=== PATIENT | female | born 1970 | race African-American/Black ===

== ENCOUNTER 2017-11-08 18:58 | Emergency (ER) | payer BC ==
[2017-11-08] MEDS ORDERED: IBUPROFEN 600 MG TAB PO STA (20:44)
[2017-11-08] MEDS ORDERED: PENICILLIN V POTASSIUM 250 MG TAB PO STA (20:44)
[2017-11-08] MEDS ORDERED: ACETAMINOPHEN TAB 500 MG TAB PO STA (20:46)
--- NOTE | 2017-11-08 21:02 | ED ---
General Adult HPI - General Chief complaint: Dental/Oral Stated complaint: Dental pain Time Seen by Provider: 11/08/17 19:59 Source: patient, RN notes reviewed Mode of arrival: ambulatory Limitations: no limitations - History of Present Illness Initial comments: 47-year-old female presents to the emergency department for a chief complaint of tooth pain. Patient states this has been going on for about a week. Patient has had multiple problems with this tooth as it is her wisdom tooth. She states about a week ago she felt a crack when she was eating and thats when the pain started. She states it is difficult to open her mouth to eat. Patient denies fevers or chills. Patient states cold causes pain on the tooth. Patient denies a stiffness or tenderness in the neck. Patient denies severe headache. Patient denies any visual changes. Patient denies chest pain, shortness of breath, abdominal pain, nausea or vomiting. Patient has had dental pain before and was seen at the [facility]. She was also seen at [facility] and would like to return to them. - Related Data Home Medications Medication Instructions Recorded Confirmed Ibuprofen [Motrin Ib] 800 mg PO Q8H PRN 11/08/17 11/08/17 Previous Rx's Medication Instructions Recorded Ibuprofen [Motrin] 600 mg PO Q8HR PRN #20 tab 11/08/17 Penicillin V Potassium [Pen Vee K] 500 mg PO Q6H 10 Days tablet 11/08/17 Allergies Allergy/AdvReac Type Severity Reaction Status Date / Time No Known Allergies Allergy Verified 11/08/17 19:46 Review of Systems ROS Statement: Those systems with pertinent positive or pertinent negative responses have been documented in the HPI. ROS Other: All systems not noted in ROS Statement are negative. Past Medical History Past Medical History: No Reported History Additional Past Medical History / Comment(s): HX OF HEPATITIS B (20 YRS AGO), HX OF GESTATIONAL DIABETES, MENSTRUAL PERIODS HEAVY WITH ANEMIA AND BLOOD TRANSFUSION ?DECEMBER 2014. History of Any Multi-Drug Resistant Organisms: None Reported Past Surgical History: Cholecystectomy, Orthopedic Surgery, Tubal Ligation Additional Past Surgical History / Comment(s): KNEE ARTHROSCOPY. Past Anesthesia/Blood Transfusion Reactions: No Reported Reaction Additional Past Anesthesia/Blood Transfusion Reaction / Comment(s): BLOOD TRANSFUSION ?DECEMBER 2014- DENIES REACTION Past Psychological History: No Psychological Hx Reported Smoking Status: Current every day smoker Past Alcohol Use History: Rare Past Drug Use History: None Reported - Past Family History Mother Family Medical History: No Reported History General Exam Limitations: no limitations Head exam: Present: atraumatic, normocephalic, normal inspection Eye exam: Present: normal appearance, PERRL, EOMI. Absent: scleral icterus, conjunctival injection, periorbital swelling ENT exam: Present: mucous membranes moist, TM's normal bilaterally, other ( Patient has difficulty opening her mouth and pain/tenderness in the left TMJ joint. Patient has pain on the left side of the mouth when biting down on tongue depressor. Patient has point tenderness on tooth 17.) Neck exam: Present: normal inspection, full ROM. Absent: tenderness, meningismus, lymphadenopathy Respiratory exam: Present: normal lung sounds bilaterally. Absent: respiratory distress, wheezes, rales, rhonchi, stridor Cardiovascular Exam: Present: regular rate, normal rhythm, normal heart sounds. Absent: systolic murmur, diastolic murmur, rubs, gallop, clicks Course Vital Signs 11/08/17 19:32 Temperature 98.4 F Pulse Rate 64 Respiratory 16 Rate Blood Pressure 189/95 O2 Sat by Pulse 100 Oximetry Medical Decision Making - Medical Decision Making 47-year-old female presents to the emergency department for chief complaint of tooth pain. Patient denies any recent fevers or chills. Patient states the pain is aching it difficult for her to open her jaw. Patient denies radiating of the pain but states she has tenderness at the TMJ joint on the left side of her mandible. No pain or stiffness in the neck. No severe headaches. Vitals are as follows:Temp 98.4, pulse 64, respirations 16, blood pressure 189/95, pulse ox 100. Patient's blood pressure is likely high because of pain. Patient will follow up with her primary care provider for blood pressure management one to 2 days. Patient requests an x-ray of the TMJ joint on the left side because of the pain there and the inability to open her mouth. I discussed that this is likely normal but she still wanted to receive it. X- ray showed no acute abnormalities of the left TMJ but did demonstrate this directed changes of the left lower molar. This is where the patient is having her pain. Patient was given Tylenol in the emergency department because she had already had ibuprofen a couple hours ago. Patient feels much better after receiving this Tylenol. She was also given a dose of penicillin while in the emergency department she will fill the script for penicillin as soon as possible. Patient states she knows where the community dental clinic is. She is either going to go there or family dentistry and does not need a dental referral. Disposition Clinical Impression: Tooth pain Disposition: HOME SELF-CARE Condition: Good Instructions: Dental Abscess (ED), Toothache (ED) Additional Instructions: Please take penicillin and ibuprofen as directed. Please return to the emergency department if you have worsening pain or increased signs of infection. Please follow up with primary care provider in one to 2 days for blood pressure management. Please follow up with either community dental clinic or another dentist. Prescriptions: Ibuprofen [Motrin] 600 mg PO Q8HR PRN #20 tab PRN Reason: Pain Penicillin V Potassium [Pen Vee K] 500 mg PO Q6H 10 Days tablet Referrals: Anthony Pruitt MD [Primary Care Provider] - 1-2 days Time of Disposition: 21:07
--- NOTE | 2017-11-08 21:23 | XR ---
EXAMINATION TYPE: XR mandible complete DATE OF EXAM: 11/08/2017 COMPARISON: NONE HISTORY: Left-sided pain TECHNIQUE: 5 views FINDINGS: The mandibular ring is intact. I see no bony destructive process. Temporomandibular joints are anatomic. I see no fracture. IMPRESSION: Negative mandible exam. There is significant destructive change involving the most acquisition professional ior left lower molar.
[2017-11-08 21:48] VITALS: BP 183/92; PULSE 82; RESP 20; TEMP 97.8
== END 2017-11-08 21:48 | disposition home or self-care (01) ==
LOC: EC 18:58
DX: K08.89 Other specified disorders of teeth and supporting structures (principal); F17.200 Nicotine dependence, unspecified, uncomplicated
CPT/HCPCS: 70110; 99283

== ENCOUNTER 2017-11-20 16:19 | Emergency (ER) | payer BC ==
[2017-11-20 16:56] VITALS: TEMP 98.3
--- NOTE | 2017-11-20 17:28 | ED ---
General Adult HPI - General Chief complaint: Dental/Oral Stated complaint: DENTAL ABSCESS Time Seen by Provider: 11/20/17 16:58 Source: patient, RN notes reviewed Mode of arrival: ambulatory Limitations: no limitations - History of Present Illness Initial comments: Patient's a 47-year-old female presenting to the emergency room today with a chief complaint of dental pain. Patient says she's proceeded dentist but that her point and was canceled. She states been taking the antibiotic. She believes there is a was tooth is pushing on the right lower side of her jaw. She was seen here in emergency room recently for this having x-ray obtained. Patient states she was using pain medication but she is currently out. She was on ibuprofen and Tylenol have no improvement of symptoms. She states she has not taken anything for the pain today. Patient's blood pressure elevated at triage. Was elevated at her previous visit as well. She states she's not on any medication for this. She believes it's only due to the pain. Patient denies any other complaints or symptoms. She states her blood pressure usually is otherwise normal. Patient denies any drainage or discharge. Patient denies any recent fever, chills, shortness of breath, chest pain, back pain, abdominal pain, nausea or vomiting, visual changes, or any other complaints. - Related Data Home Medications Medication Instructions Recorded Confirmed Ibuprofen [Motrin Ib] 800 mg PO Q8H PRN 11/08/17 11/08/17 Previous Rx's Medication Instructions Recorded Ibuprofen [Motrin] 600 mg PO Q8HR PRN #20 tab 11/08/17 Penicillin V Potassium [Pen Vee K] 500 mg PO Q6H 10 Days tablet 11/08/17 Acetaminophen-Codeine 300-30mg 1 each PO Q6H PRN #12 tablet 11/20/17 [Tylenol #3] Ibuprofen [Motrin] 800 mg PO Q6HR #30 tab 11/20/17 Allergies Allergy/AdvReac Type Severity Reaction Status Date / Time No Known Allergies Allergy Verified 11/20/17 16:53 Review of Systems ROS Statement: Those systems with pertinent positive or pertinent negative responses have been documented in the HPI. ROS Other: All systems not noted in ROS Statement are negative. Past Medical History Past Medical History: No Reported History Additional Past Medical History / Comment(s): HX OF HEPATITIS B (20 YRS AGO), HX OF GESTATIONAL DIABETES, MENSTRUAL PERIODS HEAVY WITH ANEMIA AND BLOOD TRANSFUSION ?DECEMBER 2014. History of Any Multi-Drug Resistant Organisms: None Reported Past Surgical History: Cholecystectomy, Orthopedic Surgery, Tubal Ligation Additional Past Surgical History / Comment(s): KNEE ARTHROSCOPY. Past Anesthesia/Blood Transfusion Reactions: No Reported Reaction Additional Past Anesthesia/Blood Transfusion Reaction / Comment(s): BLOOD TRANSFUSION ?DECEMBER 2014- DENIES REACTION Past Psychological History: No Psychological Hx Reported Smoking Status: Former smoker Past Alcohol Use History: Rare Past Drug Use History: None Reported - Past Family History Mother Family Medical History: No Reported History General Exam - General Exam Comments Initial Comments: General: The patient is awake and alert, in no distress, and does not appear acutely ill. Eye: Pupils are equal, round and reactive to light, extra-ocular movements are intact. No nystagmus. There is normal conjunctiva bilaterally. No signs of icterus. Ears, nose, mouth and throat: There are moist mucous membranes and no oral lesions. Patient has poor dental hygienist does have multiple missing teeth and dental fractures. She is tender greatest in the gumline of tooth #19, 18 Neck: The neck is supple, there is no tenderness or JVD. Cardiovascular: There is a regular rate and rhythm. No murmur, rub or gallop is appreciated. Respiratory: Lungs are clear to auscultation, respirations are non-labored, breath sounds are equal. No wheezes, stridor, rales, or rhonchi. Musculoskeletal: Normal ROM, no tenderness. Strength 5/5. Sensation intact. Pulses equal bilaterally 2+. Neurological: A&O x 3. CN II-XII intact, There are no obvious motor or sensory deficits. Coordination appears grossly intact. Speech is normal. Skin: Skin is warm and dry and no rashes or lesions are noted. Psychiatric: Cooperative, appropriate mood & affect, normal judgment. Limitations: no limitations Course Vital Signs 11/20/17 11/20/17 11/20/17 16:53 17:16 17:29 Temperature 98.3 F Pulse Rate 65 58 L Respiratory 18 20 Rate Blood Pressure 197/113 189/111 149/94 O2 Sat by Pulse 99 Oximetry Medical Decision Making - Medical Decision Making [facility] report was reviewed showing no prescriptions for this patient. She will be given a short prescription of Tylenol with codeine along with ibuprofen advised continue her antibiotics until she follows up with the dentist. Disposition Clinical Impression: Pain, dental Disposition: HOME SELF-CARE Condition: Fair Instructions: Toothache (ED) Additional Instructions: Please follow-up with dentist and use antibiotic and pain medication as discussed. [facility] [address] [address] [phone]) (existing clients only) For new clients: [phone] [facility] Pay $50 for x-rays and the rest discovered [phone] Prescriptions: Acetaminophen-Codeine 300-30mg [Tylenol #3] 1 each PO Q6H PRN #12 tablet PRN Reason: Pain Ibuprofen [Motrin] 800 mg PO Q6HR #30 tab Referrals: Anthony Pruitt MD [Primary Care Provider] - 1-2 days Time of Disposition: 17:36
[2017-11-20 17:29] VITALS: BP 149/94; PULSE 58; RESP 20
== END 2017-11-20 17:48 | disposition home or self-care (01) ==
LOC: EC 16:19
DX: K08.89 Other specified disorders of teeth and supporting structures (principal); Z87.891 Personal history of nicotine dependence
CPT/HCPCS: 99283

== ENCOUNTER → 2021-09-01 | Outpatient (CLI) | payer BC ==
--- NOTE | 2021-09-02 04:52 | MR ---
EXAMINATION TYPE: MR knee LT wo con DATE OF EXAM: 09/01/2021 COMPARISON: None HISTORY: Knee pain FINDINGS: The anterior and posterior cruciate ligaments are intact. There is mild knee joint effusion. There is large popliteal cyst that measures 6 x 3 cm. There is vertical complex tear through the posterior horn of the medial meniscus. There is some degen erative thinning anterior horn of the medial meniscus. Lateral meniscus appears intact. There is hype rtrophic spurring of the femoral and tibial condyles. The collateral ligaments appear intact. No frac ture line seen. The patella is intact. IMPRESSION: Hypertrophic osteoarthritis more noticeable in the medial joint space. Complex tear posterior horn me dial meniscus. No evidence of ligamentous tear. Knee joint effusion and large popliteal cyst.
== END | disposition home or self-care (01) ==
LOC: RADMRIMAIN 20:53
PROVIDERS: ATTEND Orthopaedic Surgery
DX: M17.12 Unilateral primary osteoarthritis, left knee (principal); M23.222 Derangement of posterior horn of medial meniscus due to old tear or injury, left knee; M25.462 Effusion, left knee; M71.22 Synovial cyst of popliteal space [Baker], left knee

== ENCOUNTER 2021-10-14 11:51 | Day surgery (SDC) | payer BC ==
[2021-10-13 08:22] VITALS: BMI 41.1
--- NOTE | 2021-10-13 20:44 | HP ---
HISTORY AND PHYSICAL DATE OF SURGERY: 10/14/2021 Loyda Pak is a 51-year-old patient seen with progressive left knee pain. We discussed options for treatment. She elected to proceed with arthroscopy. Consent was obtained. PAST MEDICAL HISTORY: Hypertension. PAST SURGICAL HISTORY: Cholecystectomy, hysterectomy. DAILY MEDICATIONS: Norvasc. ALLERGIES: NONE REPORTED. SOCIAL HISTORY: She denies current tobacco use. PHYSICAL EVALUATION OF THE LEFT KNEE: Range of motion is zero to 120. Mild effusion. Tenderness, medial joint line. Positive medial Nathalia's. Ligaments stable. Hip rotation without pain. Distal neurovascular exam intact. Left knee radiographs revealed moderate osteoarthritic changes. MRI left knee revealed a complex medial meniscal tear. IMPRESSION: 1. Internal derangement of left knee with medial meniscal tear. 2. Hypertension. PLAN: Left knee arthroscopy with partial meniscectomy and debridement. MMODL / IJN: [id number] /
[~2021-10-14 11:51] MED LIST: DEXAMETHASONE SOD PHOSPHATE 4 MG/ML 1 ML VIAL IV ONE; LACTATED RINGERS 1,000 ML IV SCH; LIDOCAINE 1% (10MG/ML) FOR IV START INTRADERMA PRN; MIDAZOLAM 2 MG/2 ML VIAL IV PRN; ONDANSETRON 4 MG/2 ML VIAL IVP ONE
[2021-10-14] MEDS ORDERED: MIDAZOLAM 2 MG/2 ML VIAL IVP ONE (12:29)
[2021-10-14] MEDS ORDERED: MIDAZOLAM 2 MG/2 ML VIAL ONE (13:26)
[2021-10-14] MEDS ORDERED: KETOROLAC 15 MG/ML 1 ML VIAL ONE (13:26)
[2021-10-14] MEDS ORDERED: PROPOFOL 10 MG/ML 20 ML VIAL IV ONE (13:26)
[2021-10-14] MEDS ORDERED: fentaNYL (PF) 50 MCG/ML 2 ML AMP ONE (13:26)
[2021-10-14] MEDS ORDERED: SUCCINYLCHOLINE CHLORIDE 100 MG/5 ML SYR IV ONE (13:26)
[2021-10-14] MEDS ORDERED: BUPIVACAINE (PF) 0.25% 30 ML VIAL SQ ONE ×2 (13:48→14:01)
--- NOTE | 2021-10-14 14:17 | P.OP ---
Date of Procedure: 10/14/21 Preoperative Diagnosis: Internal derangement left knee Postoperative Diagnosis: 1. Tear medial and lateral meniscus left knee 2. Grade 3/4 chondromalacia medial femoral condyle left knee 3. Reactive synovitis medial, lateral and suprapatellar compartments left Procedure(s) Performed: 1. Arthroscopic microfracture medial femoral condyle left knee 2. Arthroscopic partial medial and lateral meniscectomy left knee 3. Arthroscopic partial synovectomy medial, lateral and suprapatellar compartments left knee Anesthesia: LAVELLEA, local Surgeon: Jey Bryant Estimated Blood Loss (ml): 11 Pathology: none sent Condition: stable Disposition: PACU Indications for Procedure: 51-year-old patient seen with progressive left knee pain. After treatment options were discussed, she elected to proceed with arthroscopy. Operative Findings: see description of procedure Description of Procedure: Patient was taken to the operative suite. Patient underwent a general anesthetic by the department of anesthesia. Patient was given preoperative antibiotics. The left lower extremity was placed in a well-padded arthroscopic leg mccann. The left leg was prepped and draped in the normal sterile orthopedic fashion. A lateral parapatellar and suprapatellar incision was made. Trochars were inserted. Arthroscopy was initiated. Suprapatellar pouch revealed diffuse thick reactive synovitis. The patellofemoral joint appeared to articulate congruently. There was grade 2/3 chondromalacia of the patellofemoral joint with no osteochondral tears present. The scope was guided into the medial gutter. No loose bodies or plica were identified. The scope was then guided into the medial compartment. A medial parapatellar incision was made. Trocar inserted followed by probe. There was a complex tear involving the posterior horn medial meniscus there were grade 3/4 chondromalacia changes of the medial femoral condyle with some large osteochondral flap tears present. There was some thick reactive synovitis anteriorly. I performed a partial medial meniscectomy getting down to stable meniscal tissue. I performed a partial synovectomy decompressing the thick reactive synovitis. I performed a chondroplasty of the medial femoral condyle getting down to stable osteochondral tissue. The residual meniscus was stable. There was good decompression of the synovitis. The residual osteochondral surface was stable but there was an area of exposed bone measuring about 1.5 cm along the posterior aspect of the weightbearing surface medial femoral condyle. I performed a microfracture that area penetrating the bone with resultant bleeding of microfracture site. Scope and probe were then guided into the intercondylar notch. Cruciates were identified, probed and found to be stable. The scope and probe were then guided into lateral compartment. There was a small radial tear mid body lateral meniscus. There were some grade 1 chondromalacia changes of the lateral compartment without tear. There was some thick reactive synovitis anteriorly. I performed a partial lateral meniscectomy. I performed a partial synovectomy. The residual meniscus was stable. There was good decompression of the synovitis. The scope was in guided back into the suprapatellar compartment. I introduced a motorized shaver and debrided out some piecemeal fragments of meniscus I encountered. I performed a partial synovectomy. The shaver was removed. There was good decompression of synovitis. I now took one more look on the entire knee, no residual debris. Instruments were now removed from the joint. The joint was infiltrated with .25% Marcaine. Steri-Strips were applied to the portal sites. Sterile dressings were applied. The patient was placed into a ELVIE hose. No tourniquet was utilized. The patient was awakened, transferred to a bed and taken to recovery stable satisfactory condition.
[2021-10-14 14:20] VITALS: TEMP 97.1
[2021-10-14] MEDS: HYDROmorphone 0.5 MG/0.5 ML SYRINGE IVP PRN ×2 (14:23→14:31)
[2021-10-14 15:09] VITALS: RESP 16
[2021-10-14] MEDS ORDERED: HYDROcodone/APAP 5-325MG 1 EACH TAB ONE ×2 (15:19→15:21)
[2021-10-14] MEDS ORDERED: HYDROcodone/APAP 5-325MG 1 EACH TAB PO ONE (15:20)
[2021-10-14] MEDS ORDERED: ONDANSETRON 4 MG/2 ML VIAL ONE (15:37)
[2021-10-14] MEDS ORDERED: ONDANSETRON 4 MG/2 ML VIAL IVP ONE (15:44)
[2021-10-14 15:56] VITALS: BP 124/86; PULSE 56
== END 2021-10-14 17:00 | disposition home or self-care (01) ==
LOC: OR 11:51
PROVIDERS: ATTEND Orthopaedic Surgery
DX: M23.204 Derangement of unspecified medial meniscus due to old tear or injury, left knee (principal); M23.201 Derangement of unspecified lateral meniscus due to old tear or injury, left knee; M94.262 Chondromalacia, left knee; M65.862 Other synovitis and tenosynovitis, left lower leg; I10 Essential (primary) hypertension; E66.01 Morbid (severe) obesity due to excess calories; Z68.41 Body mass index [BMI] 40.0-44.9, adult; Z90.710 Acquired absence of both cervix and uterus; Z90.49 Acquired absence of other specified parts of digestive tract; Z98.891 History of uterine scar from previous surgery; Z79.899 Other long term (current) drug therapy
CPT/HCPCS: 29880; 29879; J2250; J1100; J0690; J2405; J3010; J1885; J0330; J2704; J1170

== ENCOUNTER → 2022-01-12 | Outpatient (CLI) | payer OTHER ==
--- NOTE | 2022-01-12 15:04 | CT ---
EXAMINATION TYPE: CT brain wo con DATE OF EXAM: 01/12/2022 COMPARISON: None INDICATION: fall, posterior head injury DLP: 1012.7 mGycm, Automated exposure control for dose reduction was used. CONTRAST: None CT of the brain is performed utilizing 3 mm thick sections through the posterior fossa and 3 mm thick sections through the remaining calvarium. Study is performed within 24 hours of arrival to the hosp ital. No abnormal hyperdensity is present to suggest an acute intracranial hemorrhage. No mass lesion is evident. No acute infarcts are evident. Ventricles and sulci are appropriate for the patient age. Paranasal sinuses and mastoid air cells within the [id number] are clear. No fractures are evident IMPRESSIONS: 1. No acute intracranial process. Follow-up MRI can be performed as clinically indicated.
--- NOTE | 2022-01-12 15:06 | CT ---
EXAMINATION TYPE: CT facial bones wo con DATE OF EXAM: 01/12/2022 COMPARISON: None HISTORY: fall hitting posterior aspect of head CT DLP: 514.1 mGycm Automated exposure control for dose reduction was used. Contrast: None Technique: Facial bones are examined in the axial plane at 2 mm thick sections. Reconstructed images in the coronal plane are reviewed. FINDINGS: There is a retention cyst within the inferior left maxillary sinus. Minimal mucosal thickening is wit hin the inferior right maxillary sinus. Remaining paranasal sinuses visualized are clear. 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 Right septal deviation is noted Temporomandibular junctions are normal. Mandible and maxilla are intact. Maxillary spine is intact. Z ygomatic arches are normal. Greater wings of the sphenoid are unremarkable IMPRESSION: 1. NO ACUTE OSSEOUS ABNORMALITIES FACIAL BONES.
== END | disposition home or self-care (01) ==
LOC: RADCTMAIN 14:34
PROVIDERS: ATTEND Emergency Medicine
DX: S09.90XA Unspecified injury of head, initial encounter (principal); W19.XXXA Unspecified fall, initial encounter
CPT/HCPCS: 70450; 70486

== ENCOUNTER → 2022-01-13 | Outpatient (CLI) | payer OTHER ==
--- NOTE | 2022-01-13 11:00 | CT ---
EXAMINATION TYPE: CT cervical spine wo con DATE OF EXAM: 01/13/2022 COMPARISON: None HISTORY: 51-year-old female S13.4XXD SPRAIN OF LIGAMENTS OF CERVICAL SPINE, Neck pain TECHNIQUE: Contiguous axial scanning of the cervical spine without IV contrast. Coronal and sagittal reconstructions performed. CT DLP: 1225 mGycm Automated exposure control for dose reduction was used. FINDINGS: Mild hypertrophy of the adenoid tonsils. Bilateral palatine tonsillar hypertrophy. Bulky, heterogeneo us thyroid gland. No craniocervical junction abnormality, predental space widening, or prevertebral soft tissue swellin g. Mild degenerative change at C1 dens articulation. Moderate degenerative disc disease C5-C6 with endplate sclerosis and endplate irregularity. Mild dege nerative disc disease C4-C5 and C6-C7. Small disc osteophyte complexes are present at these 3 levels. Limited assessment of the spinal canal from C5-C6 and below due to artifact from the patient's should ers. No large focal disc herniation along the more superior levels. Uncovertebral joint arthropathy lower cervical spine. Facet arthropathy to result in right in the upp er thoracic spine. No acute fracture or malalignment of the cervical spine though there is reversal of the normal cervic al lordosis. Mild to moderate left foraminal stenosis at C5-C6 and mild on the right at C7-T1. IMPRESSION: 1. NO ACUTE FRACTURE OR MALALIGNMENT OF THE CERVICAL SPINE. 2. [id number] SPONDYLOTIC CHANGES, GREATEST AT C5-C6. 3. PROMINENT SOFT TISSUE DENSITY IN THE POSTERIOR NASOPHARYNX. CONSIDER DIRECT INSPECTION. 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 4. BULKY HETEROGENEOUS THYROID GLAND. DEDICATED THYROID ULTRASOUND COULD FURTHER EVALUATE.
--- NOTE | 2022-01-13 11:09 | XR ---
EXAMINATION TYPE: XR knee complete bilateral DATE OF EXAM: 01/13/2022 COMPARISON: NONE HISTORY: 51-year-old female M25.569, Pain unspecified knee after fall yesterday. TECHNIQUE: 3 views each side FINDINGS: Moderate degenerative spurring right greater than left medial compartments. Additional degenerative s purring in the left lateral and bilateral patellofemoral compartments. Vacuum phenomenon at the right medial compartment likely relating to distraction at the knee. No sizable joint effusion on either side. Extensor mechanisms are intact. No acute fracture, subluxation, dislocation seen. IMPRESSION: 1. Moderate degenerative spurring in the right greater than left medial compartments. Additional dege nerative spurring left lateral compartment and bilateral patellofemoral compartments. 2. Some vacuum phenomenon within the right medial compartment likely due to distraction at the knee. 3. No significant joint effusion or acute osseous abnormality seen.
--- NOTE | 2022-01-13 12:57 | XR ---
EXAMINATION TYPE: XR lumbar spine 2 or 3V DATE OF EXAM: 01/13/2022 CLINICAL HISTORY: Fall injury yesterday with pain TECHNIQUE: Frontal and lateral images of the lumbar spine are obtained. COMPARISON: None FINDINGS: There are 5 lumbar type vertebral bodies identified. Bilateral pars defect L5 level with s light grade 1 anterolisthesis L5 on S1 measured 6 to 7 mm long posterior vertebral body margin. Mild disc space narrowing L5-S1 level. Mild to moderate disc space narrowing with vacuum disc phenomenon a nd moderate anterior spurring at T12-L1 level. Vertebral body heights are maintained overlying soft t issue is unremarkable. No acute displaced fracture. IMPRESSION: As above.
== END | disposition home or self-care (01) ==
LOC: RADCTMAIN 10:16
PROVIDERS: ATTEND Emergency Medicine
DX: M47.812 Spondylosis without myelopathy or radiculopathy, cervical region (principal); M25.761 Osteophyte, right knee; M25.762 Osteophyte, left knee; M51.27 Other intervertebral disc displacement, lumbosacral region
CPT/HCPCS: 72100; 72125

== ENCOUNTER → 2022-01-17 | Outpatient (CLI) | payer OTHER ==
--- NOTE | 2022-01-17 11:29 | CT ---
EXAMINATION TYPE: CT brain wo con DATE OF EXAM: 01/17/2022 COMPARISON: CT dated 01/12/2022 HISTORY: worsening posterior headache CT DLP: 1162 mGycm Automated exposure control for dose reduction was used. TECHNIQUE: CT scan of the brain is performed without IV contrast administration. FINDINGS: Cavum septum pellucidum and vergae. Stable scattered small pleural-based calcifications without signi ficant mass effect. No acute intracranial hemorrhage. No gross acute cortical infarct. No midline kobe ft, herniation or ventriculomegaly. Unremarkable camacho-white matter differentiation, basal cisterns, sella and CP angles. No gross space-o ccupying lesion, vasogenic edema or mass effect. Unremarkable orbits. Enlarged nasopharyngeal soft tissue, please correlate clinically. Mucosal thicke caty of the maxillary sinuses. Clear mastoid air cells. Unremarkable calvarial bones. IMPRESSION: No acute intracranial abnormality or gross space-occupying lesion by this nonenhanced CT scan. Incide ntal findings as described above. Further MRI assessment can be considered if clinically required.
== END | disposition home or self-care (01) ==
LOC: RADCTMAIN 10:54
PROVIDERS: ATTEND Emergency Medicine
DX: R51.9 Headache, unspecified (principal)
CPT/HCPCS: 70450

== ENCOUNTER → 2022-01-21 | Outpatient (CLI) | payer OTHER ==
--- NOTE | 2022-01-22 01:46 | MR ---
EXAMINATION TYPE: MR brain wo con DATE OF EXAM: 01/21/2022 COMPARISON: None HISTORY: Fell backwards and slammed back of head at work, headaches Multiplanar multiecho imaging of the brain with no contrast. Ventricles have normal size. There is no mass effect or midline shift. No evidence of intracranial he morrhage. No evidence of cerebral edema. Diffusion images show no sign of an acute infarct. The brain stem is intact. Cerebellum is intact. There is mucous retention cyst left maxillary sinus. The camacho a nd white matter structures show fairly normal signal pattern. No evidence of cerebral edema. Corpus callosum appears normal. Sella turcica is normal. No evidence of orbital mass. No evidence of posterior fossa mass. The internal auditory canals appear normal. IMPRESSION: Negative MR scan of the brain.
== END | disposition home or self-care (01) ==
LOC: RADMRIMAIN 19:55
PROVIDERS: ATTEND Emergency Medicine
DX: R51.9 Headache, unspecified (principal)
CPT/HCPCS: 70551

== ENCOUNTER 2022-10-28 08:19 | Day surgery (SDC) | payer BC ==
[~2022-10-28 08:19] MED LIST changes: +ACETAMINOPHEN TAB 500 MG TAB PO PRN; +DEXAMETHASONE SOD PHOSPHATE 10 MG/ML 1 ML VIAL IV PRN; +DOCUSATE 100 MG CAP PO PRN; +FAMOTIDINE 20 MG/2 ML VIAL IV PRN; +FAMOTIDINE 20 MG/2 ML VIAL IVP PRN; +HYDROmorphone 0.5 MG/0.5 ML SYRINGE IVP PRN; +KETOROLAC 15 MG/ML 1 ML VIAL IVP PRN; +ONDANSETRON 4 MG/2 ML VIAL IVP PRN; +ROPIVACAINE/EPI/CLONIDINE/KET 50 ML SYRINGE MISCELLANE PRN; +TRANEXAMIC ACID IN NACL,ISO-OS 1,000 MG in SALINE 1 100ML.BAG IV PRN; +TRANEXAMIC ACID IN NACL,ISO-OS 1,000 MG in SALINE 1 100ML.BAG IVPB PRN; +fentaNYL (PF) 50 MCG/ML 2 ML AMP IVP PRN; +oxyCODONE ER 10 MG TAB.ER.12H PO PRN
[2022-10-28] MEDS ORDERED: HYDROmorphone 0.5 MG/0.5 ML SYRINGE IVP PRN ×2 (08:36→13:12)
[2022-10-28] MEDS ORDERED: FAMOTIDINE 20 MG/2 ML VIAL IV PRN (08:36)
[2022-10-28] MEDS ORDERED: DEXAMETHASONE SOD PHOSPHATE 4 MG/ML 1 ML VIAL IV ONE (08:36)
[2022-10-28] MEDS ORDERED: PROPOFOL 10 MG/ML 20 ML VIAL IV ONE (10:22)
[2022-10-28] MEDS ORDERED: LABETALOL 5 MG/ML VIAL MDV ONE (10:22)
[2022-10-28] MEDS ORDERED: ROCURONIUM 10 MG/ML (5 ML VIAL) IV ONE (10:22)
[2022-10-28] MEDS ORDERED: GLYCOPYRROLATE 0.2 MG/ML 2 ML VIAL ONE (10:22)
[2022-10-28] MEDS ORDERED: ROPIVACAINE 5 MG/ML 30 ML VIAL ONE (10:22)
[2022-10-28] MEDS ORDERED: fentaNYL (PF) 50 MCG/ML 2 ML AMP ONE (10:22)
[2022-10-28] MEDS ORDERED: LIDOCAINE 4% LTA KIT (4 ML) TOPICAL ONE (10:22)
[2022-10-28] MEDS ORDERED: ePHEDrine 50 MG/ML 1 ML VIAL ONE (10:22)
[2022-10-28] MEDS ORDERED: MIDAZOLAM 2 MG/2 ML VIAL ONE (10:22)
[2022-10-28] MEDS ORDERED: NEOSTIGMINE 1 MG/ML 10 ML VIAL ONE (10:22)
[2022-10-28] MEDS ORDERED: TRANEXAMIC ACID IN NACL,ISO-OS 1,000 MG/100 ML BAG ONE (10:22)
[2022-10-28] MEDS ORDERED: HYDROmorphone (PF) 1 MG/ML ONE (10:22)
[2022-10-28] MEDS ORDERED: SUCCINYLCHOLINE CHLORIDE 200 MG/10 ML VIAL IV ONE (10:22)
[2022-10-28] MEDS ORDERED: LIDOCAINE 2% INJ 20 MG/ML (2 ML VIAL) ONE (10:22)
[2022-10-28] MEDS: ROPIVACAINE/EPI/CLONIDINE/KET 50 ML SYRINGE MISCELLANE PRN ×2 (11:08→11:52)
[2022-10-28] MEDS ORDERED: LACTATED RINGERS 1,000 ML IV ONE ×2 (11:31)
[2022-10-28] MEDS ORDERED: NALOXONE 0.4 MG/ML 1 ML VIAL IV PRN (13:12)
[2022-10-28] MEDS ORDERED: HYDROmorphone 1 MG/ML 1 ML SYRINGE IVP PRN (13:12)
[2022-10-28] MEDS ORDERED: HYDROcodone/APAP 5-325MG 1 EACH TAB PO PRN (13:12)
[2022-10-28] MEDS ORDERED: ONDANSETRON 4 MG/2 ML VIAL IVP PRN (13:12)
--- NOTE | 2022-10-28 13:13 | P.OP ---
Date of Procedure: 10/28/22 Preoperative Diagnosis: 1. Severe left knee osteoarthritis 2. BMI 45.1 Postoperative Diagnosis: Same Procedure(s) Performed: Left total knee replacement Implants: 1. Nitin Triathlon CR Femur Size #3 2. Keene Triathlon Arrington Tibial Base Size #3 3. Keene Triathlon CS poly Size #9-mm 4. Keene Triathlon all poly patella, Size #29 Anesthesia: LAVELLEA Surgeon: Fran Cartwright Truck Technician #1: Jefferson Joe Estimated Blood Loss (ml): 150 IV fluids (ml): 1,000 Pathology: none sent Condition: stable Disposition: PACU Indications for Procedure: I met with the patient preoperatively in the office setting and discussed treatment of their symptomatic knee arthritis. They failed a long course of nonsurgical treatment and elected to proceed with an elective total knee replacement. I discussed the potential risks and complications at length and gave them ample time to ask questions. Risks discussed included: risks from anesthesia, superficial site surgical infection, acute and/or chronic p eriprosthetic joint infection, delayed wound healing, drainage, wound necrosis, instability, stiffness, stiffness requiring manipulation and/or revision surgery, damage to local blood vessels or nerves, aseptic loosening of the implants, extensor mechanism issues including disruption, patellar maltracking, avascular necrosis etc., continued or worsened knee pain, generalized dissatisfaction with surgical outcome, need for revision surgery, an inability to regain preinjury level of function, DVT, PE, other medical complications, and possibly loss of life or limb. The patient voiced their understanding that while these are the most common complications other less common complications are possible. They provided both their verbal and written consent to go forward with surgery. Operative Findings: Severe left knee osteoarthritis medial and patellofemoral compartment with full- thickness cartilage loss and exposed subchondral bone Description of Procedure: The patient was identified in preoperative holding and the correct operative extremity was verified and marked with a marker. I reviewed the consent form with the patient at length. All of their questions were answered. The patient was given a block by anesthesia. They were then brought back to the operating room. They were transferred onto the operating room table where a general anesthetic, preoperative antibiotics, and tranexamic acid were administered by anesthesia. A tourniquet was applied to the proximal aspect of the operative extremity. The contralateral extremity was padded under the heel and secured to the operating room table with a nonsterile blue towel and tape. The ipsilateral arm was carefully draped across the patient's chest and secured with a pillow and foam. A post was applied over the lateral aspect of the ipsilateral thigh and a bolster was placed under the ipsilateral foot. I verified that the operative extremity was stable and the knee was flexed to 90. The operative extremity was then placed in a leg mccann, nonsterile drapes were applied, and the extremity was prepped and draped sterilely in the standard sterile fashion. Prior to starting surgery timeout was performed identifying the correct patient, operative extremity, and procedure. The leg was then elevated, exsanguinated with an Esmarch bandage, and the tourniquet was inflated. An anterior midline incision was made sharply with a scalpel. Once I had dissected deep to the superficial fascial layer medial and lateral flaps were elevated. A medial parapatellar arthrotomy was created. Upon opening the knee joint there were diffuse arthritic changes in all 3 compartments. The anterior horn of the medial meniscus were sharply released and a medial release was performed around the posterior medial corner of the knee to facilitate retractor placement. The fat pad was excised with electrocautery. The patella was found to be severely arthritic and a provisional cut was made with a sagittal saw to facilitate mobilization of the extensor mechanism during the procedure. Remnants of the ACL and PCL were then excised from the notch. 4 mm pins were then placed within the incision in the medial distal femur and proximal tibia. Arrays were applied to the pins and I verified they were completely tightened. The knee was then registered with the eHarmony robot and manipulations in implant position were made to balance the knee and opitmize implant position. Using the Marc robotic saw all cuts were made in accordance with our plan. After all bony fragments had been removed the cuts were verified with the planar probe. The tibia was then subluxed forward and sized. The knee was brought into flexion and a lamina metal molder was placed to allow removal of the meniscal remnants both medially and laterally as well as posterior osteophytes. Local anesthetic was then infiltrated around the joint capsule. Trial implants were then placed within the knee. Range of motion and collateral ligament tension was then evaluated. Adjustments in implant size and position were then made accordingly. Once the knee was felt to be appropriately balanced the Marc pins were removed. The patella was then recut, sized, and punched. A trial patellar button was then placed. With the trial components in place, the patella tracked midline. The femur was then drilled and the trial component removed. The trial tibial component was then appropriately rotated, pinned, and prepared for the keel. All trial components were then removed from the knee. The knee was thoroughly irrigated with pulsatile lavage. Cement was prepared via vacuum mixing in a bowl on the back table. I then hand pressurized cement into the femur and tibia and placed the implants beginning with the tibial base tray and poly liner, femoral component, and finally the patellar button. All extruded cement was removed including from the pin sites. Once the cement had hardened the knee was evaluated one final time with the final polyethylene liner in place. The knee had full extension and flexion and felt stable to varus and valgus stress throughout the arc of motion. The tourniquet was released and with the tourniquet down the patella tracked midline. All bleeders were controlled with electrocautery. The knee was then soaked for 3 minutes with a dilute Betadine soak. The knee was thoroughly irrigated using 3 L of sterile saline and pulsatile lavage. A deep drain was placed. The extensor mechanism was then reapproximated using pop off Vicryl sutures followed by a running barbed suture. The knee was then closed in layers with a 0 strata fix for the deep fascial layer, 2-0 strata fix for the superficial subcutaneous layer and Monocryl and Steri-Strips for the skin. A sterile dressing and drain sponge were applied. I verified that all instrument, sponge, and sharp counts were correct. The patient was then transferred off the operating room table, extubated, and brought to recovery having tolerated the procedure well. Jefferson Joe PA-C was required as a skilled night assistant due to the complexity of the procedure for patient positioning, draping, retraction, placement of hardware, and closure of wound. PLAN: The patient can weight-bear as tolerated on the operative extremity. DVT prophylaxis with aspirin 81 mg twice a day based on preoperative risk str atification. Follow-up in the office in 2 weeks for wound check and x-rays of the knee including an AP and lateral.
--- NOTE | 2022-10-28 13:42 | XR ---
EXAMINATION TYPE: XR knee limited LT DATE OF EXAM: 10/28/2022 1:35 PM INDICATION: Patient age:Female; 52 years old; Reason for study: Evaluation for Postop abnormality and alignment; [facility]. COMPARISON: CT left knee 09/30/2022, bilateral knee radiographs 01/13/2022 TECHNIQUE: The Left knee(s) was examined in frontal and crosstable lateral projections. FINDINGS: Post total arthroplasty changes with distal femoral and proximal tibial components. Hardw are appears intact with appropriate alignment. There is associated soft tissue edema and gas. No acut e fracture or dislocation. IMPRESSION: Post surgical changes from total knee arthroplasty. Hardware appears intact with appropriate alignmen t.
[2022-10-28] MEDS ORDERED: ROPIVACAINE 1,100 MG, SODIUM CHLORIDE 0.9% 500 ML 330 ML, EMPTY PAIN BALL 1 EACH MISCELLANE PRN ×2 (14:10)
[2022-10-28] MEDS: LACTATED RINGERS 1,000 ML IV SCH ×3 (14:38→21:55)
--- NOTE | 2022-10-28 15:10 | P.ANPRN ---
Procedure Note - Anesthesia - Nerve Block Performed Left Adductor Canal Infusion Time Out Performed: Yes Date of Procedure: 10/28/22 Procedure Start Time: 14:20 Procedure Stop Time: 14:30 Location of Patient: Phase I Indication: Acute Post-Operative Pain, Requested by Surgeon Sedation Type: Sedate with meaningful contact maintained Preparation: Sterile Prep, Sterile Dressing Position: Supine Needle Types: Pajunk Needle Gauge: 18 Ultrasound used to visualize needle placement: Yes Ultrasound used to observe medication spread: Yes Injectate: 0.5% Ropivacaine (see comment for volume) (20 ml) Blood Aspirated: Yes Pain Paresthesia on Injection Noted: Yes Resistance on Injection: Normal Image Stored and Saved: Yes Events: Uneventful and Well Tolerated
[2022-10-28] MEDS: ASPIRIN 81 MG PO SCH (20:08)
[2022-10-28] MEDS: SENNOSIDES-DOCUSATE SODIUM 1 EACH TAB PO SCH (21:23)
[2022-10-28] MEDS: hydrOXYzine pamoate 25 MG CAP PO PRN (21:24)
[2022-10-29] MEDS: HYDROcodone/APAP 5-325MG 1 EACH TAB PO PRN ×4 (01:38→19:54)
[2022-10-29] MEDS: LACTATED RINGERS 1,000 ML IV SCH ×2 (04:51→05:59)
--- NOTE | 2022-10-29 07:08 | P.PN ---
Progress Note - Text Progress Note Date: 10/29/22 Postoperative day # 1 status post total knee arthroplasty, and adductor canal catheter placed for postoperative analgesia, currently at ropivacaine 0.2% 8 mL per hour and continuous infusion, visual analogue scale is 1-2/10, patient using oral pain medication for breakthrough pain. Assessment and plan= Acute postoperative pain, adductor canal catheter for pain control, pain is well controlled we'll continue the same management.
[2022-10-29] MEDS: ASPIRIN 81 MG PO SCH ×2 (07:34→19:54)
[2022-10-29 09:49] LABS: Basophils # (A) 0.02 X 10*3/uL (0.00-0.10); Basophils % (A) 0.2 %; Eosinophils # (A) 0 X 10*3/uL (0.04-0.35); Eosinophils % (A) 0 %; HCT 38.1 % (37.2-46.3); HGB 12.5 g/dL (12.0-15.0); Immature Grans, Automated 0.3 %; Lymphocytes # (A) 1.55 X 10*3/uL (0.90-5.00); Lymphocytes % (A) 12.8 %; MCH 31.6 pg (27.0-32.0); MCHC 32.8 g/dL (32.0-37.0); MCV 96.5 fL (80.0-97.0); Mean Platelet Volume 10.2 fL (9.5-12.2); Monocytes # (A) 1.05 X 10*3/uL (0.20-1.00); Monocytes % (A) 8.7 %; NRBC Per 100 WBC 0 /100 WBCS (0.0-0.0); Neutrophils # (A) 9.47 X 10*3/uL (1.80-7.70); Platelet Count 215 X 10*3/uL (140-440); RBC 3.95 X 10*6/uL (4.10-5.20); WBC 12.13 X 10*3/uL (4.50-10.00)
--- NOTE | 2022-10-29 11:02 | P.DS ---
Providers Date of admission: 10/28/2022 Expected date of discharge: 10/29/22 Attending physician: Fran Cartwright Consults: 10/28/22 13:12 Consult Physician Routine Consulting Provider: Mark Zazueta Consult Reason/Comments: medical management Do you want consulting provider notified?: Yes Primary care physician: Wood Anne - Discharge Diagnosis(es) (1) Primary localized osteoarthritis of left knee Current Visit: Yes Status: Acute (2) Status post total left knee replacement Current Visit: Yes Status: Acute Hospital Course: This is a 52-year-old female who was last seen with complaint of continued left knee pain. The patient has a known history of degenerative arthritis of the left knee and presents to discuss surgical options. After discussion and consideration the patient elects to proceed with total left knee arthroplasty. The patient is seen preoperatively by her primary care physician and cleared for surgery. The patient is admitted to [facility] for total left knee arthroplasty. The procedure was performed without complication or sequelae. She is doing well postoperatively. Vital signs are stable at discharge. Labs are stable at discharge. the patient is ambulating well with walker with minimal assistance. Patient did well with physical therapy and was able to maneuver stairs well. The patient is discharged to home on postop day #[1 pending medical clearance. Please see orders and refer to the med rec for accurate list of medications. Patient Condition at Discharge: Good Plan - Discharge Summary Discharge Rx Participant: Yes New Discharge Prescriptions: New HYDROcodone/APAP 5-325MG [Mckenna 5-325] 1 - 2 tab PO Q6HR PRN 7 Days #32 tab PRN Reason: Pain Diclofenac Sodium [Voltaren] 75 mg PO BID 30 Days #60 tab Aspirin 81 mg PO BID 30 Days #60 tab Docusate [Colace] 100 mg PO BID #60 capsule Omeprazole 40 mg PO DAILY 30 Days #30 cap No Action amLODIPine [Norvasc] 5 mg PO DAILY Chlorthalidone [Hygroton] 25 mg PO DAILY Discharge Medication List Chlorthalidone [Hygroton] 25 mg PO DAILY 10/14/21 [History] amLODIPine [Norvasc] 5 mg PO DAILY 10/14/21 [History] Aspirin 81 mg PO BID 30 Days #60 tab 10/28/22 [Rx] Diclofenac Sodium [Voltaren] 75 mg PO BID 30 Days #60 tab 10/28/22 [Rx] Docusate [Colace] 100 mg PO BID #60 capsule 10/28/22 [Rx] HYDROcodone/APAP 5-325MG [Mckenna 5-325] 1 - 2 tab PO Q6HR PRN 7 Days #32 tab 10/28/22 [Rx] Omeprazole 40 mg PO DAILY 30 Days #30 cap 10/28/22 [Rx] Follow up Appointment(s)/Referral(s): Fran Cartwright MD [Medical Doctor] - 2 Weeks Activity/Diet/Wound Care/Special Instructions: Weight bear to tolerance on operative extremity with a walker. Keep operative dressing in place until follow-up appointment in the office. Call the office if dressing becomes saturated or falls off. May shower over dressing. Take pain medications as prescribed. Take aspirin 81 twice a day for blood clot prevention. Follow-up in the office in two weeks at [facility]. Call the office with any questions or concerns, Discharge Disposition: HOME WITH HOME HEALTH SERVICES
[2022-10-29] MEDS: HYDROmorphone 0.5 MG/0.5 ML SYRINGE IVP PRN (14:35)
[2022-10-29] MEDS: SENNOSIDES-DOCUSATE SODIUM 1 EACH TAB PO SCH (19:53)
[2022-10-30] MEDS: HYDROcodone/APAP 5-325MG 1 EACH TAB PO PRN ×2 (01:46→07:52)
[2022-10-30] MEDS: HYDROmorphone 0.5 MG/0.5 ML SYRINGE IVP PRN (05:16)
[2022-10-30] MEDS: LACTATED RINGERS 1,000 ML IV SCH ×2 (07:33→17:53)
[2022-10-30] MEDS: ASPIRIN 81 MG PO SCH ×2 (07:49→20:00)
--- NOTE | 2022-10-30 09:30 | P.CONS ---
History of Present Illness - Reason for Consult Consult date: 10/28/22 Medical management - Chief Complaint Severe left knee osteoarthritis - History of Present Illness 52-year-old female patient with past medical history of hypertension, gastroesophageal reflux disease and severe osteoarthritis of left knee; patient was evaluated by orthopedic surgery postoperatively in the office setting for treatment of symptomatic severe knee arthritis; patient has failed along course of nonsurgical treatment and was recommended elective total knee replacement Patient is seen postoperatively and is status post left total knee replacement, POD #0 Review of Systems REVIEW OF SYSTEMS: CONSTITUTIONAL: No fever, no malaise, no fatigue. HEENT: No recent visual problems or hearing problems. Denied any sore throat. CARDIOVASCULAR: No chest pain, orthopnea, PND, no palpitations, no syncope. PULMONARY: No shortness of breath, no cough, no hemoptysis. GASTROINTESTINAL: No diarrhea, no nausea, no vomiting, no abdominal pain. NEUROLOGICAL: No headaches, no weakness, no numbness. HEMATOLOGICAL: Denies any bleeding or petechiae. GENITOURINARY: Denies any burning micturition, frequency, or urgency. MUSCULOSKELETAL/RHEUMATOLOGICAL: Denies any joint pain, swelling, or any muscle pain. ENDOCRINE: Denies any polyuria or polydipsia. The rest of the 14-point review of systems is negative. Past Medical History Past Medical History: Hypertension, Osteoarthritis (OA) Additional Past Medical History / Comment(s): HX OF HEPATITIS B (20 YRS AGO), HX OF GESTATIONAL DIABETES, MENSTRUAL PERIODS HEAVY WITH ANEMIA AND BLOOD TRANSFUSION ?DECEMBER 2014. hx of HTN on meds.currently trying to control with diet. History of Any Multi-Drug Resistant Organisms: None Reported Past Surgical History: Cholecystectomy, Hysterectomy, Orthopedic Surgery, Tubal Ligation Additional Past Surgical History / Comment(s): KNEE ARTHROSCOPY bilateral, total left knee 10/28/22 Past Anesthesia/Blood Transfusion Reactions: No Reported Reaction Additional Past Anesthesia/Blood Transfusion Reaction / Comm: BLOOD TRANSFUSION ?DECEMBER 2014- DENIES REACTION Past Psychological History: No Psychological Hx Reported Smoking Status: Former smoker Past Alcohol Use History: Rare Additional Past Alcohol Use History / Comment(s): SMOKES 5 CIGARETTES PER DAY. quit 2017. STARTED SMOKING AT 23 YRS OLD. Past Drug Use History: Marijuana Additional Drug Use History / Comment(s): smokes marijauna daily pt aware not to use 24 hrs before procedure. - Past Family History Father Family Medical History: Hypertension Mother Family Medical History: Hypertension Medications and Allergies Home Medications Medication Instructions Recorded Confirmed Type Chlorthalidone [Hygroton] 25 mg PO DAILY 10/14/21 10/28/22 History amLODIPine [Norvasc] 5 mg PO DAILY 10/14/21 10/28/22 History Aspirin 81 mg PO BID 30 Days #60 tab 10/28/22 Rx Diclofenac Sodium [Voltaren] 75 mg PO BID 30 Days #60 tab 10/28/22 Rx Docusate [Colace] 100 mg PO BID #60 capsule 10/28/22 Rx HYDROcodone/APAP 5-325MG [Frannie 1 - 2 tab PO Q6HR PRN 7 Days #32 10/28/22 Rx 5-325] tab Omeprazole 40 mg PO DAILY 30 Days #30 cap 10/28/22 Rx Aspirin 81 mg PO BID tab 10/29/22 Rx Allergies Allergy/AdvReac Type Severity Reaction Status Date / Time No Known Allergies Allergy Verified 10/28/22 09:06 Physical Exam Vitals: Vital Signs Temp Pulse Resp BP BP Pulse Ox 10/28/22 16:10 51 L 132/88 96 10/28/22 15:55 75 130/88 93 L 10/28/22 15:40 72 129/87 93 L 10/28/22 15:26 55 L 115/70 95 10/28/22 15:10 51 L 139/92 96 10/28/22 14:40 48 L 15 114/59 95 10/28/22 14:30 47 L 16 112/57 96 10/28/22 13:57 47 L 15 119/58 100 10/28/22 13:42 45 L 15 124/61 100 10/28/22 13:26 48 L 16 122/72 98 10/28/22 13:11 97.1 F L 55 L 18 146/76 98 10/28/22 08:57 98 F 80 16 149/85 98 Intake and Output 10/28/22 10/28/22 10/28/22 06:59 14:59 22:59 Intake Total 2150 100 Output Total 150 Balance 2000 100 Intake: IV 2150 Oral 100 Output: Estimated Blood Loss 150 Other: # Voids 1 Weight 119.1 kg 119.1 kg PHYSICAL EXAMINATION: GENERAL: The patient is alert and oriented x3, not in any acute distress. Well developed, well nourished. HEENT: Pupils are round and equally reacting to light. EOMI. No scleral icterus. No conjunctival pallor. Normocephalic, atraumatic. No pharyngeal erythema. No thyromegaly. CARDIOVASCULAR: S1 and S2 present. No murmurs, rubs, or gallops. PULMONARY: Chest is clear to auscultation, no wheezing or crackles. ABDOMEN: Soft, nontender, nondistended, normoactive bowel sounds. No palpable organomegaly. MUSCULOSKELETAL: No joint swelling or deformity. EXTREMITIES: No cyanosis, clubbing, or pedal edema. NEUROLOGICAL: Gross neurological examination did not reveal any focal deficits. SKIN: No rashes. Results CBC & Chem 7: 10/29/22 05:53 Assessment and Plan Assessment: 1. Severe left knee osteoarthritis; patient is status post left total knee replacement; POD #0 - Orthopedic surgery recommending weightbearing as tolerated - Patient will continue with aspirin 81 mg twice a day for DVT prophylaxis - Follow up with orthopedic surgery in 2 weeks for wound check and x-rays of the knee 2. Acute postoperative pain; patient has an abductor could not catheter placed for postoperative analgesia; currently at ropivacaine 0.2% 8 mL per hour and continuous infusion along with oral pain medications for breakthrough pain 3. Hypertension; blood pressure remained soft; we will plan to hold off on antihypertensive therapy for next 24 hours 4. Gastroesophageal reflux disease; Protonix 40 mg daily DVT prophylaxis; SCDs/aspirin 81 mg twice a day CODE STATUS; full code
--- NOTE | 2022-10-30 09:31 | P.PN ---
Subjective Progress Note Date: 10/29/22 52-year-old female patient with past medical history of hypertension, gastroesophageal reflux disease and severe osteoarthritis of left knee; patient was evaluated by orthopedic surgery postoperatively in the office setting for treatment of symptomatic severe knee arthritis; patient has failed along course of nonsurgical treatment and was recommended elective total knee replacement Patient is seen postoperatively and is status post left total knee replacement, POD # 1 Acute postoperative pain; patient has an abductor could not catheter placed for postoperative analgesia; currently at ropivacaine 0.2% 8 mL per hour and continuous infusion along with oral pain medications for breakthrough pain Objective - Vital Signs Vital signs: Vital Signs Temp 98.4 F 10/30/22 07:12 Pulse 77 10/30/22 07:12 Resp 16 10/30/22 07:12 BP 123/80 10/30/22 07:12 Pulse Ox 99 10/30/22 07:12 FiO2 Intake & Output 10/29/22 10/30/22 10/30/22 18:59 06:59 18:59 Other: # Voids 3 2 - Exam PHYSICAL EXAMINATION: GENERAL: The patient is alert and oriented x3, not in any acute distress. Well developed, well nourished. HEENT: Pupils are round and equally reacting to light. EOMI. No scleral icterus. No conjunctival pallor. Normocephalic, atraumatic. No pharyngeal erythema. No thyromegaly. CARDIOVASCULAR: S1 and S2 present. No murmurs, rubs, or gallops. PULMONARY: Chest is clear to auscultation, no wheezing or crackles. ABDOMEN: Soft, nontender, nondistended, normoactive bowel sounds. No palpable organomegaly. MUSCULOSKELETAL: No joint swelling or deformity. EXTREMITIES: No cyanosis, clubbing, or pedal edema. NEUROLOGICAL: Gross neurological examination did not reveal any focal deficits. SKIN: No rashes. - Labs CBC & Chem 7: 10/29/22 05:53 Labs: Abnormal Lab Results - Last 24 Hours (Table) 10/29/22 Range/Units 05:53 WBC 12.13 H (4.50-10.00) X 10*3/uL RBC 3.95 L (4.10-5.20) X 10*6/uL Neutrophils # 9.47 H (1.80-7.70) X 10*3/uL Monocytes # 1.05 H (0.20-1.00) X 10*3/uL Eosinophils # 0 L (0.04-0.35) X 10*3/uL Assessment and Plan Assessment: 1. Severe left knee osteoarthritis; patient is status post left total knee replacement; POD #0 - Orthopedic surgery recommending weightbearing as tolerated - Patient will continue with aspirin 81 mg twice a day for DVT prophylaxis - Follow up with orthopedic surgery in 2 weeks for wound check and x-rays of the knee 2. Acute postoperative pain; patient has an abductor could not catheter placed for postoperative analgesia; currently at ropivacaine 0.2% 8 mL per hour and continuous infusion along with oral pain medications for breakthrough pain 3. Hypertension; blood pressure remained soft; we will plan to hold off on an tihypertensive therapy for next 24 hours 4. Gastroesophageal reflux disease; Protonix 40 mg daily DVT prophylaxis; SCDs/aspirin 81 mg twice a day CODE STATUS; full code
[2022-10-30] MEDS ORDERED: HYDROcodone/APAP 7.5-325MG 1 EACH TAB PO PRN (09:34)
--- NOTE | 2022-10-30 09:38 | P.PN ---
Subjective Progress Note Date: 10/30/22 Principal diagnosis: Status post left total knee arthroplasty This is a 52 year-old female post left knee arthroplasty. This is post-op day 2. The patient was evaluated at the bedside today. The patient denies nausea, vomiting, abdominal pain, shortness of breath, and chest pain this morning. She states her pain is not controlled at this time and required Dilaudid this mor caty. The patient has been up with physical therapy and is ambulating to the bathroom. Objective - Vital Signs Vital signs: Vital Signs Temp 98.4 F 10/30/22 07:12 Pulse 77 10/30/22 07:12 Resp 16 10/30/22 07:12 BP 123/80 10/30/22 07:12 Pulse Ox 99 10/30/22 07:12 FiO2 Intake & Output 10/29/22 10/30/22 10/30/22 18:59 06:59 18:59 Other: # Voids 3 2 - Exam The patient does not appear in acute distress. Alert and orientated x3. Dressing is clean dry and intact. Incision appears fine with no erythema or active drainage. Calf is soft and nontender. Good foot and ankle motion without difficulty. Sensation and circulatory status is intact. - Labs CBC & Chem 7: 10/29/22 05:53 Labs: Abnormal Lab Results - Last 24 Hours (Table) 10/29/22 Range/Units 05:53 WBC 12.13 H (4.50-10.00) X 10*3/uL RBC 3.95 L (4.10-5.20) X 10*6/uL Neutrophils # 9.47 H (1.80-7.70) X 10*3/uL Monocytes # 1.05 H (0.20-1.00) X 10*3/uL Eosinophils # 0 L (0.04-0.35) X 10*3/uL Assessment and Plan (1) Primary localized osteoarthritis of left knee Current Visit: Yes Status: Acute Code(s): M17.12 - UNILATERAL PRIMARY OSTEOARTHRITIS, LEFT KNEE SNOMED Code(s): 489272395313434 (2) Status post total left knee replacement Current Visit: Yes Status: Acute Code(s): Z96.652 - PRESENCE OF LEFT ARTIFICIAL KNEE JOINT SNOMED Code(s): 1204400306098 Plan: 1. Continue pain control, increase Sunburst to 7.5mg 2. Anticoagulation with Aspirin 3. Continue physical therapy and ambulation 4. Anticipate discharge home tomorrow
[2022-10-30] MEDS: hydrOXYzine pamoate 25 MG CAP PO PRN (13:41)
[2022-10-30] MEDS: HYDROcodone/APAP 7.5-325MG 1 EACH TAB PO PRN ×2 (13:42→20:00)
[2022-10-30] MEDS: SENNOSIDES-DOCUSATE SODIUM 1 EACH TAB PO SCH (20:00)
[2022-10-31] MEDS: HYDROcodone/APAP 7.5-325MG 1 EACH TAB PO PRN ×3 (02:20→14:15)
--- NOTE | 2022-10-31 07:51 | P.PN ---
Subjective Patient had pain in her leg over the weekend and discharge home, but she is better today. She continues to have mostly posterior knee pain and pain in her calf.She has no other complaints today. Denies chest pain or shortness of breath. Objective - Vital Signs Vital signs: Vital Signs Temp 98.1 F 10/31/22 00:44 Pulse 84 10/31/22 00:44 Resp 16 10/31/22 00:44 BP 124/82 10/31/22 00:44 Pulse Ox 100 10/31/22 00:44 FiO2 Intake & Output 10/30/22 10/31/22 10/31/22 18:59 06:59 18:59 Intake Total 1080 480 Balance 1080 480 Intake: Oral 1080 480 Other: Voiding Method Toilet Toilet # Voids 3 2 - Exam The patient is resting comfortably in her bed. She is in no apparent distress. She is alert and able to answer questions. Her dressing over the left knee is intact. There is mild swelling anteriorly in the knee. She has swelling calf tenderness. Her foot is warm and well perfused with brisk capillary refill. - Labs CBC & Chem 7: 10/29/22 05:53 Assessment and Plan Assessment: Postoperative day #3 status post left total knee replacement Plan: Agree with prior progress notes for postoperative plan. Due to the patient's calf pain, tenderness, swelling and BMI I would like to check an ultrasound to rule out a DVT prior to discharge. If this is negative we will plan for discharge home later today once her pain is controlled and she passes physical therapy. The patient had questions regarding her indwelling pain pump. This is not something I routinely use and was placed by anesthesia. I would like the patient evaluated by anesthesia to address her concerns with this.
[2022-10-31 08:48] VITALS: RESP 18
--- NOTE | 2022-10-31 08:49 | US ---
EXAMINATION TYPE: US venous doppler duplex LE LT DATE OF EXAM: 10/31/2022 8:37 AM COMPARISON: NONE CLINICAL HISTORY: swelling/calf pain, rule out DVT. Left leg pain and swelling following knee replace ment, patient taking aspirin Exam done portable SIDE PERFORMED: Left TECHNIQUE: The lower extremity deep venous system is examined utilizing real time linear array sonog triston with graded compression, doppler sonography and color-flow sonography. VESSELS IMAGED: Common Femoral Vein Deep Femoral Vein Greater Saphenous Vein * Femoral Vein Popliteal Vein Small Saphenous Vein * Proximal Calf Veins (* superficial vessels) Left Leg: Appears negative for DVT Grayscale, color doppler, spectral doppler imaging performed of the deep veins of the left lower extr emity. There is normal flow, compressibility, vascular waveforms. IMPRESSION: No ultrasound evidence for acute DVT in the left lower extremity.
[2022-10-31] MEDS: ASPIRIN 81 MG PO SCH (08:53)
[2022-10-31 14:21] VITALS: BP 105/70; PULSE 77; TEMP 97.8
[2022-10-31 14:40] LABS: Basophils # (A) 0.03 X 10*3/uL (0.00-0.10); Basophils % (A) 0.4 %; Eosinophils # (A) 0.13 X 10*3/uL (0.04-0.35); Eosinophils % (A) 1.9 %; HCT 31.6 % (37.2-46.3); HGB 10.3 g/dL (12.0-15.0); Immature Grans, Automated 0.4 %; Lymphocytes # (A) 2.73 X 10*3/uL (0.90-5.00); Lymphocytes % (A) 38.9 %; MCH 31.5 pg (27.0-32.0); MCHC 32.6 g/dL (32.0-37.0); MCV 96.6 fL (80.0-97.0); Mean Platelet Volume 9.8 fL (9.5-12.2); Monocytes # (A) 0.81 X 10*3/uL (0.20-1.00); Monocytes % (A) 11.6 %; NRBC Per 100 WBC 0 /100 WBCS (0.0-0.0); Neutrophils # (A) 3.28 X 10*3/uL (1.80-7.70); Neutrophils % (A) 46.8 %; Platelet Count 158 X 10*3/uL (140-440); RBC 3.27 X 10*6/uL (4.10-5.20); RDW 13.1 % (11.5-14.5); WBC 7.01 X 10*3/uL (4.50-10.00)
--- NOTE | 2022-10-31 23:32 | PN ---
PROGRESS NOTE DATE OF SERVICE: 10/31/2022 SUBJECTIVE: This is a 52-year-old woman who was admitted with left total knee arthroplasty, improved significantly. No chest pain, no palpitation. OBJECTIVE: VITAL SIGNS: Pulse is 82, blood pressure 113/87, respirations 18. CHEST: Clear to auscultation. CARDIOVASCULAR: S1, S2 normal. ABDOMEN: Soft. LEGS: Status post knee surgery. LABORATORY DATA: Reviewed. ASSESSMENT: 1. Status post left total knee arthroplasty. 2. Hypertension. 3. Degenerative joint disease. RECOMMENDATIONS: This is a 52-year-old woman who presented with multiple medical issues. I would recommend to continue the current medications. I would recommend resume the home medications on discharge. DVT prophylaxis. The rest of the recommendations per Orthopedic Surgery. Follow up with primary care physician closely after discharge. MMODL / IJN: [id number] /
== END 2022-10-31 17:57 | disposition home health service (06) ==
LOC: OR 08:19 → 4SSUR 12:52 → OR 10-31 17:57
PROVIDERS: ATTEND Orthopaedic Surgery
DX: M17.12 Unilateral primary osteoarthritis, left knee (principal); E66.01 Morbid (severe) obesity due to excess calories; Z68.42 Body mass index [BMI] 45.0-49.9, adult; G89.18 Other acute postprocedural pain; I10 Essential (primary) hypertension; Z87.891 Personal history of nicotine dependence; F10.20 Alcohol dependence, uncomplicated; Z79.1 Long term (current) use of non-steroidal anti-inflammatories (NSAID); Z79.2 Long term (current) use of antibiotics; Z79.899 Other long term (current) drug therapy; Z98.890 Other specified postprocedural states; Z82.49 Family history of ischemic heart disease and other diseases of the circulatory system
CPT/HCPCS: 27447; 97116; 97530; 97161; 64999; 64448; 76942; 85025 ×2; 73560; 93971; C1776; C1713; C1751; J1100; J0690 ×2; J2405; J1885; J1170

== ENCOUNTER 2022-12-09 10:33 | Day surgery (SDC) | payer BC ==
[~2022-12-09 10:33] MED LIST changes: -ACETAMINOPHEN TAB 500 MG TAB PO PRN; -DEXAMETHASONE SOD PHOSPHATE 10 MG/ML 1 ML VIAL IV PRN; -DOCUSATE 100 MG CAP PO PRN; -FAMOTIDINE 20 MG/2 ML VIAL IV PRN; -FAMOTIDINE 20 MG/2 ML VIAL IVP PRN; -KETOROLAC 15 MG/ML 1 ML VIAL IVP PRN; -LIDOCAINE 1% (10MG/ML) FOR IV START INTRADERMA PRN; -ONDANSETRON 4 MG/2 ML VIAL IVP PRN; +Pre Op ABX Message 1 EACH MISC MISCELLANE ONE; -ROPIVACAINE/EPI/CLONIDINE/KET 50 ML SYRINGE MISCELLANE PRN; +SCOPOLAMINE 1 MG/72 HR PATCH TRANSDERM ONE; -TRANEXAMIC ACID IN NACL,ISO-OS 1,000 MG in SALINE 1 100ML.BAG IV PRN; -TRANEXAMIC ACID IN NACL,ISO-OS 1,000 MG in SALINE 1 100ML.BAG IVPB PRN; -fentaNYL (PF) 50 MCG/ML 2 ML AMP IVP PRN; -oxyCODONE ER 10 MG TAB.ER.12H PO PRN
[2022-12-09 11:38] VITALS: TEMP 97
[2022-12-09] MEDS ORDERED: TRANEXAMIC ACID 1,000 MG in SODIUM CHLORIDE 0.9% 100 ML IVPB ONE (12:13)
[2022-12-09] MEDS ORDERED: PROPOFOL 10 MG/ML 20 ML VIAL IV ONE (12:16)
[2022-12-09] MEDS ORDERED: fentaNYL (PF) 50 MCG/ML 2 ML AMP ONE (12:16)
[2022-12-09] MEDS ORDERED: MIDAZOLAM 2 MG/2 ML VIAL ONE (12:16)
[2022-12-09] MEDS ORDERED: TRANEXAMIC ACID IN NACL,ISO-OS 1,000 MG/100 ML BAG ONE (12:16)
--- NOTE | 2022-12-09 12:45 | P.OP ---
Date of Procedure: 12/09/22 Preoperative Diagnosis: 1. Arthrofibrosis status post left total knee replacement 2. BMI 44.2 Postoperative Diagnosis: Same Procedure(s) Performed: Manipulation under anesthesia left knee Anesthesia: MAC Surgeon: Fran Cartwright Pathology: none sent Condition: stable Disposition: PACU Indications for Procedure: The patient is a very pleasant 52-year-old female who underwent a left total knee replacement 6 weeks ago. She has done well postoperatively but developed severe arthrofibrosis limiting her motion. She has worked extensively with physical therapy but has not been able to achieve 90 of flexion. I discussed her case with her therapist we both agree proceeding with a manipulation. I met with the patient yesterday in the office to discuss a manipulation. She understands the procedure at length. She understands the risks including but certainly not limited to risks from anesthesia, intraoperative fracture, recurrence of stiffness, need for further procedures, medical complications, and possibly loss of life or limb. She provided her consent to go forward with surgery. Operative Findings: Preoperatively the patient had full extension and flexion to 30. Following manipulation she had full extension and flexion to 100. Description of Procedure: The patient was identified in preoperative holding and the correct left leg was marked with my initials. I reviewed the consent form with the patient and her mom. All their questions were answered. The patient was then brought back to the operating room. A timeout was performed identifying the correct patient operative extremity and procedure. Sedation was given by anesthesia. Once the patient was under adequate anesthesia I examined her knee. She had full extension and flexion to 30. Gradually over 5 minutes I applied a posterior force to the proximal tibia. As I gradually corrected her contracture there was audible crackling his adhesions were broken up. After finishing she had 100 of flexion and full extension. Her knee felt well balanced. The patient was then awoken from her sedation and brought to recovery having tolerated the procedure well. Plan: The patient is going to discharge home as an outpatient. She has physical therapy this afternoon. She was given a prescription for narcotic pain medications and an NSAID. She will need aggressive therapy to maintain her motion.
[2022-12-09] MEDS ORDERED: HYDROcodone/APAP 10-325MG 1 EACH TAB ONE (13:06)
[2022-12-09] MEDS ORDERED: HYDROcodone/APAP 10-325MG 1 EACH TAB PO ONE (13:10)
[2022-12-09 14:10] VITALS: BP 148/90; PULSE 67; RESP 14
== END 2022-12-09 14:18 | disposition home or self-care (01) ==
LOC: OR 10:33
PROVIDERS: ATTEND Orthopaedic Surgery
DX: M24.662 Ankylosis, left knee (principal); I10 Essential (primary) hypertension; F10.90 Alcohol use, unspecified, uncomplicated; Z90.710 Acquired absence of both cervix and uterus; Z98.890 Other specified postprocedural states; Z82.49 Family history of ischemic heart disease and other diseases of the circulatory system; Z68.41 Body mass index [BMI] 40.0-44.9, adult; Z96.652 Presence of left artificial knee joint; Z87.891 Personal history of nicotine dependence; Z79.82 Long term (current) use of aspirin
CPT/HCPCS: 27570; J2250; J1100; J2405; J3010; J2704

== ENCOUNTER → 2024-11-07 | Outpatient (CLI) | payer BC ==
--- NOTE | 2024-11-14 13:43 | MM ---
Reason for Exam: Screening (asymptomatic). Baseline mammogram. Risk Values: Alfreda 5 year model risk: 1.0%. NCI Lifetime model risk: 6.2%. Prior Study Comparison: Patient's first Mammogram. Tissue Density: There are scattered areas of fibroglandular density. Findings: Analyzed By CAD. There is no suspicious group of microcalcifications or new suspicious mass in either breast. Asymmetric breast tissue lower inner margin right breast. Benign appearing calcifications. Benign lymph nodes. Overall Assessment: Benign, BI-RAD 2 Management: Screening Mammogram of both breasts in 1 year. . Patient should continue monthly self-breast exams. A clinical breast exam by your physician is recommended on an annual basis. This exam should not preclude additional follow-up of suspicious palpable abnormalities. Note on Alfreda scores and lifetime risk: 1. A Alfreda score greater than 3% is considered moderate risk. If this is the case, consider specialist referral to assess eligibility for a risk reducing agent. 2. If overall lifetime risk for the development of breast cancer is 20% or higher, the patient may qualify for future screening with alternating mammogram and breast MRI. [facility], , 11/08/2024 7:48 AM. Electronically signed and approved by: Virgilio Heath M.D. [facility]
== END | disposition home or self-care (01) ==
LOC: RADMAMWWP 16:49
PROVIDERS: ATTEND Family Medicine
DX: Z12.31 Encounter for screening mammogram for malignant neoplasm of breast (principal); R92.323 Mammographic fibroglandular density, bilateral breasts; R92.1 Mammographic calcification found on diagnostic imaging of breast
CPT/HCPCS: 77063; 77067